=== PATIENT | male | born 1950 | race Caucasian/White ===

== ENCOUNTER 2017-06-03 09:21 | Day surgery (SDC) | payer OTHER ==
[~2017-06-03 09:21] MED LIST: AMARYL; ATIVAN2 M1 PO; CLONAZEPAM2 MG PO; METFORMIN HCL500 MG PO; RISPERDAL2 MG PO
[2017-06-03] MEDS ORDERED: RECTICARE30 GM TOP (13:51)
[2017-06-03] MEDS ORDERED: POLY119PG PO (13:51)
[2017-06-03] MEDS ORDERED: PERCOCET 5-3251 EACH PO (13:51)
== END 2017-06-03 17:55 | disposition home or self-care (01) ==
LOC: CIR.AMB 09:21
DX: D12.9 Benign neoplasm of anus and anal canal (principal); K62.0 Anal polyp